=== PATIENT | male | born 1970 | race Caucasian/White ===

== ENCOUNTER → 2021-02-21 | Outpatient (CLI) | payer BC | END | disposition home or self-care (01) | LOC: LAB 12:10 | PROVIDERS: ATTEND Neurological Surgery | DX: M51.47 Schmorl's nodes, lumbosacral region (principal) | CPT/HCPCS: 36415; 82565; 84520 ==

== ENCOUNTER → 2021-02-22 | Outpatient (CLI) | payer BC ==
[~2021-02-22] MED LIST: GADOTERATE MEGLUMINE 5 MMOL/10 ML VIAL IV ONE
== END | disposition home or self-care (01) ==
LOC: RAH 12:36
PROVIDERS: ATTEND Neurological Surgery
DX: S32.018A Other fracture of first lumbar vertebra, initial encounter for closed fracture (principal); S32.028A Other fracture of second lumbar vertebra, initial encounter for closed fracture; S32.038A Other fracture of third lumbar vertebra, initial encounter for closed fracture; S32.048A Other fracture of fourth lumbar vertebra, initial encounter for closed fracture; S32.058A Other fracture of fifth lumbar vertebra, initial encounter for closed fracture; M51.47 Schmorl's nodes, lumbosacral region; M51.24 Other intervertebral disc displacement, thoracic region; M47.816 Spondylosis without myelopathy or radiculopathy, lumbar region; M48.061 Spinal stenosis, lumbar region without neurogenic claudication; X58.XXXA Exposure to other specified factors, initial encounter; Y93.89 Activity, other specified; Y92.89 Other specified places as the place of occurrence of the external cause; Y99.8 Other external cause status
CPT/HCPCS: 72158; A9575

== ENCOUNTER 2021-03-07 10:00 | Observation (INO) | payer BC ==
[~2021-03-07] VITALS: Ht 193 cm; Wt 140.2 kg
[2021-03-07 13:33] LABS: BASOPHILS % (AUTO) 1.1 % (0.0-5.0); EOSINOPHILS % (AUTO) 5.1 % (0.0-8.0); HEMATOCRIT 41.7 % (42-54); LYMPHOCYTES % (AUTO) 33.9 % (21.0-51.0); MEAN CORPUSCULAR HEMOGLOBIN 29.2 pg (27.0-33.0); MEAN CORPUSCULAR HGB CONC 34.1 g/dL (32.0-36.0); MEAN CORPUSCULAR VOLUME 85.6 fL (79-99); MONOCYTES % (AUTO) 6.5 % (3.0-13.0); NEUTROPHILS % (AUTO) 53.2 % (40.0-77.0); PLATELET COUNT (AUTO) 272 K/uL (130-400); RED BLOOD CELL COUNT(AUTO) 4.87 MIL/uL (4.50-6.20); WHITE BLOOD COUNT (AUTO) 6.4 K/uL (4.8-10.8)
[2021-03-07 13:43] LABS: POTASSIUM 4.2 mmol/L (3.5-5.1)
[2021-03-09 08:53] VITALS: BP 159/75
[2021-03-09] MEDS ORDERED: METO100T14 PO (09:49)
[2021-03-09] MEDS ORDERED: SEMA1PEN3 SQ (09:49)
[2021-03-09] MEDS ORDERED: FENO145T26 PO (09:49)
[2021-03-09] MEDS ORDERED: IRBE1TAB43 PO (09:49)
[2021-03-09] MEDS ORDERED: DAPA1TAB3 PO (09:49)
[2021-03-09] MEDS ORDERED: INSU100I24 SQ (09:49)
[2021-03-09] MEDS ORDERED: HYDR12.54 PO (09:49)
[2021-03-10] VITALS (20 sets, daily range): BP systolic 113–168; BP diastolic 76–101
[2021-03-10] MEDS ORDERED: CEFAZOLIN SODIUM 100 GM IV SCH (06:00)
[2021-03-10] MEDS ORDERED: 0.9%NACL 1000ML 1,000 ML IV ONE (07:30)
[2021-03-10] MEDS: CEFAZOLIN SODIUM 1 GM VIAL ONE ×2 (07:34→10:00)
[2021-03-10] MEDS ORDERED: SUCCINYLCHOLINE CHLORIDE 20 MG/ML 10 ML VIAL ONE (07:53)
[2021-03-10] MEDS ORDERED: LIDOCAINE PF 100MG/5ML (2%) SYRINGE 5ML ONE (07:53)
[2021-03-10] MEDS ORDERED: PROPOFOL 10 MG/ML 20ML VIAL IV ONE (07:53)
[2021-03-10] MEDS ORDERED: ROCURONIUM 10MG/1ML SYR 10 MG/ML ML ONE (07:53)
[2021-03-10] MEDS ORDERED: FENTANYL CITRATE PF 50 MCG/1 ML 2ML VIAL ONE ×2 (07:53→13:26)
[2021-03-10] MEDS ORDERED: PHENYLEPHRINE HCL 10 MG/ML 1ML VIAL IV ONE ×2 (07:53→07:57)
[2021-03-10] MEDS ORDERED: LIDOCAINE HCL-MPF 1% 5ML AMP IJ ONE (07:54)
[2021-03-10] MEDS ORDERED: THROMBIN-JMI 20000 UNIT KIT TP ONE (08:16)
[2021-03-10] MEDS ORDERED: CEFAZOLIN SODIUM 1 GM VIAL ONE ×2 (08:16→13:27)
[2021-03-10] MEDS ORDERED: MORPHINE PF 100MG/10ML AMP IV ONE (08:16)
[2021-03-10] MEDS ORDERED: BUPIVACAINE/EPI/PF 0.25% 30ML VIAL IJ ONE (08:16)
[2021-03-10] MEDS ORDERED: MIDAZOLAM HCL 1 MG/ML 2ML VIAL ONE (09:32)
[2021-03-10] MEDS ORDERED: GLYCOPYRROLATE 1 MG/5 ML SYRINGE ONE (10:48)
[2021-03-10] MEDS ORDERED: EPHEDRINE SULFATE 50 MG/ML AMPULE ONE (10:54)
[2021-03-10] MEDS ORDERED: ONDANSETRON 4MG INJ ONE (13:02)
[2021-03-10] MEDS ORDERED: NEOSTIGMINE 5MG/5ML SYR IV ONE (13:02)
[2021-03-10] MEDS ORDERED: KETOROLAC 30MG VIAL (30MG/ML) ONE (13:03)
[2021-03-10] MEDS ORDERED: LABETALOL 20MG VIAL IV ONE (13:21)
[2021-03-10] MEDS ORDERED: PROMETHAZINE HCL 25 MG/ML 1ML AMPULE IM PRN (14:00)
[2021-03-10] MEDS ORDERED: HYDROCODONE/ACETAMINOPHEN 5/325 MG TAB PO PRN (14:00)
[2021-03-10] MEDS ORDERED: 0.9%NACL 10ML VIAL IVP PRN (14:00)
[2021-03-10] MEDS: LACTATED RINGERS 1000ML 1,000 ML IV SCH ×2 (14:00→21:52)
[2021-03-10] MEDS ORDERED: SEMAGLUTIDE 1 MG SQ SCH (14:00)
[2021-03-10] MEDS ORDERED: MORPHINE 2 MG SYG IVP PRN (14:00)
[2021-03-10] MEDS: DEXAMETHASONE SOD PHOSPHATE 4 MG/ML 1ML VIAL IVP SCH ×2 (14:00→19:48)
[2021-03-10] MEDS ORDERED: Insulin Degludec (Tresiba Flextouch U-100) SQ PRN (14:30)
[2021-03-10] MEDS: METOPROLOL TARTRATE 50 MG TAB PO SCH (19:48)
[2021-03-10] MEDS: DAPAGLIFLOZIN PO SCH (19:51)
[2021-03-10] MEDS: METFORMIN HCL PO SCH (19:51)
[2021-03-10] MEDS ORDERED: CEFAZOLIN SODIUM IV SCH ×2 (21:00)
[2021-03-10] MEDS ORDERED: SODIUM CHLORIDE IV SCH ×2 (21:00)
[2021-03-11] VITALS: BP 152/94
[2021-03-11] MEDS: DEXAMETHASONE SOD PHOSPHATE 4 MG/ML 1ML VIAL IVP SCH ×2 (02:03→08:10)
[2021-03-11 04:00] VITALS: BP 136/83
[2021-03-11 07:12] VITALS: BP 137/78
[2021-03-11] MEDS: METOPROLOL TARTRATE 50 MG TAB PO SCH (08:10)
[2021-03-11] MEDS: DAPAGLIFLOZIN PO SCH (08:15)
[2021-03-11] MEDS: METFORMIN HCL PO SCH (08:15)
[2021-03-11] MEDS ORDERED: FENOFIBRATE NANOCRYSTALLIZED 145 MG TAB PO SCH (09:00)
[2021-03-11] MEDS ORDERED: IRBESARTAN HCTZ PO SCH (09:00)
[2021-03-11] MEDS ORDERED: HYDROCHLOROTHIAZIDE 25 MG TABLET PO SCH (09:00)
== END 2021-03-11 10:47 | disposition home or self-care (01) ==
LOC: DAH 10:00 → EDSTATUS 13:00 → OBSVTOIN 03-10 06:40 → INTOOBSV 03-10 06:40 → DAHIP 03-10 06:40 → EDSTATUS 03-10 13:00 → 3DH 03-10 15:27
PROVIDERS: ADMIT Neurological Surgery; ATTEND Neurological Surgery
DX: M48.061 Spinal stenosis, lumbar region without neurogenic claudication (principal); Z20.822 Contact with and (suspected) exposure to COVID-19; E11.9 Type 2 diabetes mellitus without complications; I10 Essential (primary) hypertension; E66.9 Obesity, unspecified; E78.00 Pure hypercholesterolemia, unspecified; Z96.659 Presence of unspecified artificial knee joint; Z79.899 Other long term (current) drug therapy; Z68.37 Body mass index [BMI] 37.0-37.9, adult
CPT/HCPCS: 36415; 63047; 63048 ×3; 72020; 80048; 82948 ×2; 85025; 87635; 93005; 96365; 96375; 96376; A4215; A4221; A4222; A4223; A4344; A4510; A4600; A4649 ×3; A4663; A6260; C9803; G0378 ×21; J0330; J0690 ×4; J1100 ×4; J1885; J2001; J2250; J2274; J2370 ×2; J2405; J2704; J2710; J3010 ×2; J3490 ×5; J7030; J7120 ×3; U0003